=== PATIENT | female | born 1975 | race Caucasian/White ===

== ENCOUNTER 2017-08-04 18:12 | Emergency (ER) | payer MEDICARE ==
[2017-08-04 18:16] VITALS: TEMP 97.5
[2017-08-04] MEDS ORDERED: CELEXA40 MG PO (18:39)
[2017-08-04 18:42] LABS: BASO % 0.3 % (0.0-2.0); EOS % 0.1 % (0-4.0); GRAN # 4.8 (1.4-6.5); HEMATOCRIT 43.3 % (37.0-47.0); LYMPH # 3.4 (1.2-3.4); LYMPH % 38.5 % (20.0-51.0); MEAN CELL VOLUME 92 fl (80.0-100.0); MEAN CORPUSCULAR HEMOGLOBIN 30 pg (27.0-31.0); MEAN CORPUSCULAR HGB CONC 32 g/dl (33.0-37.0); MEAN PLATELET VOLUME 9.2 fl (7.4-10.4); MONO # 0.6 (0.1-0.6); MONO % 6.9 % (1.7-9.3); PLATELET COUNT 282 K/mm3 (130-400); RED BLOOD COUNT 4.72 M/mm3 (4.10-5.30); REDCELL DISTRIBUTION WIDTH-CV 13.2 % (11.5-14.5)
[2017-08-04 18:47] LABS: INR 0.9 (0.8-3.0); PROTHROMBIN TIME 10.6 SECONDS (9.7-12.8)
[2017-08-04 18:52] LABS: ALANINE AMINOTRANSFERASE 39 U/L (9-52); ALBUMIN 4.3 gm/dL (3.5-5.0); ALKALINE PHOSPHATASE 76 U/L (50-136); ANION GAP 15 mmol/L (7-16); AST,SGOT 36 U/L (15-37); BILIRUBIN,TOTAL 0.5 mg/dL (0.0-1.0); BLOOD UREA NITROGEN 12 mg/dL (7-17); CALCIUM 9.7 mg/dL (8.4-10.2); CARBON DIOXIDE 26 mmol/L (22-30); CHLORIDE 103 mmol/L (98-107); CREATININE, serum 0.82 mg/dL (0.52-1.25); GLUCOSE 81 mg/dL (74-106); POTASSIUM 3.7 mmol/L (3.4-5.0); SODIUM 143 mmol/L (137-145); TOTAL PROTEIN 9.4 gm/dL (6.4-8.2)
[2017-08-04 19:04] LABS: TROPONIN-I < 0.012 ng/mL (0.000-0.034)
[2017-08-04] MEDS ORDERED: TOPROL XL 25MG25 MG PO (21:12)
[2017-08-04 21:19] VITALS: BP 105/67; PULSE 68
== END 2017-08-04 21:20 | disposition home or self-care (01) ==
LOC: COL.ER 18:12
PROVIDERS: Emergency Medicine
DX: I49.3 Ventricular premature depolarization (principal); R07.89 Other chest pain; Z85.3 Personal history of malignant neoplasm of breast